=== PATIENT | male | born 1990 ===

== ENCOUNTER 2019-10-08 21:52 | Emergency (ER) | payer SELFPAY ==
[2019-10-08] MEDS ORDERED: Ketorolac 30 MG/ML SDV IM ONE (22:17)
[2019-10-08] MEDS ORDERED: Metoclopramide 10 MG/2 ML SDV IM ONE (22:17)
[2019-10-08] MEDS ORDERED: Cyclobenzaprine 10 MG Tab PO ONE (22:17)
--- NOTE | 2019-10-08 22:20 | EDM.PDOC ---
ED HPI GENERAL MEDICAL PROBLEM - General Chief Complaint: Headache Stated Complaint: HEADACHE Time Seen by Provider: 10/08/19 22:09 - History of Present Illness INITIAL COMMENTS - FREE TEXT/NARRATIVE: The patient complains of a headache. The headache started 3 days ago. It was insidious onset after he was awakened at work. 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 Headache had insidious onset and gradual worsening. It starts in his right forehead and radiates to his right neck muscles. It is 10 out of 10 severity now. It is associated with some nausea. There was no prodrome. There is no visual disturbance. There is no ataxia or other neurologic complaints. The patient has had headaches in the past but not bad enough that he needed to be seen by medical person. The patient has a family history of a father who had a brain aneurysm. History of present illness: [] Review of systems: As per history of present illness and below otherwise all systems reviewed and negative. Past medical history: As per history of present illness and as reviewed below otherwise noncontributory. Surgical history: As per history of present illness and as reviewed below otherwise noncontributory. Social history: No reported history of drug or alcohol abuse. Family history: As per history of present illness and as reviewed below otherwise noncontributory. Physical exam: HEENT: Atraumatic, normocephalic, pupils reactive, negative for conjunctival pallor or scleral icterus, mucous membranes moist, throat clear, neck supple, nontender, trachea midline. Funduscopic exam was difficult but no gross abnormality was seen. Neck was supple Lungs: Clear to auscultation, breath sounds equal bilaterally, chest nontender. Heart: S1S2, regular, negative for clicks, rubs, or JVD. Abdomen: Soft, nondistended, nontender. Negative for masses or hepatosplenomegaly. Negative for costovertebral tenderness. Pelvis: Stable nontender. Genitourinary: Deferred. Rectal: Deferred. Extremities: Atraumatic, negative for cords or calf pain. Neurovascular unremarkable. Neuro: Awake, alert, oriented. Cranial nerves II through XII unremarkable. Cerebellum unremarkable. Motor and sensory unremarkable throughout. Exam nonfocal. Diagnostics: [] Therapeutics: [] Impression: [] Plan: [] Definitive disposition and diagnosis as appropriate pending reevaluation and review of above. Headache Pain Score (Numeric/FACES): 10 - Related Data Allergies Allergy/AdvReac Type Severity Reaction Status Date / Time No Known Allergies Allergy Verified 10/08/19 22:03 Home Meds: Home Meds Cyclobenzaprine [Flexeril] 10 mg PO TID PRN #14 tab 10/08/19 [Rx] Past Medical History - Past Health History Medical/Surgical History: Denies Medical/Surgical History HEENT History: Reports: None Cardiovascular History: Reports: None Respiratory History: Reports: Asthma Gastrointestinal History: Reports: None Genitourinary History: Reports: None Musculoskeletal History: Reports: None Neurological History: Reports: None Psychiatric History: Reports: None Endocrine/Metabolic History: Reports: None Hematologic History: Reports: None Immunologic History: Reports: None Oncologic (Cancer) History: Reports: None Dermatologic History: Reports: None - Infectious Disease History Infectious Disease History: Reports: None - Past Surgical History Head Surgeries/Procedures: Reports: None Male Surgical History: Reports: None Social & Family History - Tobacco Use Smoking Status *Q: Current Every Day Smoker Years of Tobacco use: 7 Packs/Tins Daily: 0.5 - Caffeine Use Caffeine Use: Reports: None - Recreational Drug Use Recreational Drug Use: No ED ROS GENERAL - Review of Systems Review Of Systems: See Below - Physical Exam Exam: See Below Course - Vital Signs Last Recorded V/S: Last Vital Signs Temp 96.1 F L 10/08/19 21:59 Pulse 67 10/08/19 21:59 Resp 18 10/08/19 21:59 BP 124/71 10/08/19 21:59 Pulse Ox 98 10/08/19 21:59 - Orders/Labs/Meds Meds: Medications Discontinued Medications Generic Name Dose Route Start Last Admin Trade Name Freq PRN Reason Stop Dose Admin Cyclobenzaprine HCl 10 mg 10/08/19 22:17 10/08/19 22:30 Flexeril PO 10/08/19 22:18 10 mg ONETIME ONE Administration Ketorolac Tromethamine 30 mg 10/08/19 22:17 10/08/19 22:32 Toradol IM 10/08/19 22:18 30 mg ONETIME ONE Administration Ketorolac Tromethamine Confirm 10/08/19 22:29 10/08/19 22:36 Toradol Administered 10/08/19 22:30 Not Given Dose 30 mg .ROUTE .STK-MED ONE Metoclopramide HCl 10 mg 10/08/19 22:17 10/08/19 22:32 Reglan IM 10/08/19 22:18 10 mg ONETIME ONE Administration - Re-Assessments/Exams Free Text/Narrative Re-Assessment/Exam: 10/08/19 23:04 Patient improved quite a bit with the medications and rest time. Discharged in satisfactory condition Departure - Departure Time of Disposition: 23:00 Disposition: Home, Self-Care 01 Condition: Good Clinical Impression: Tension-type headache - Discharge Information Instructions: Tension Headache, Adult, [id number] Referrals: PCP,None [Primary Care Provider] - Forms: ED Department Discharge Additional Instructions: [facility] [address] [place] [id number] [address] [address] The following information is given to patients seen in the emergency department who are being discharged to home. This information is to outline your options for follow-up care. We provide all patients seen in our emergency department with a follow-up referral. The need for follow-up, as well as the timing and circumstances, are variable depending upon the specifics of your emergency department visit. If you don't have a primary care physician on staff, we will provide you with a referral. We always advise you to contact your personal physician following an emergency department visit to inform them of the circumstance of the visit and for follow-up with them and/or the need for any referrals to a consulting specialist. The emergency department will also refer you to a specialist when appropriate. This referral assures that you have the opportunity for follow-up care with a specialist. All of these measure are taken in an effort to provide you with optimal care, which includes your follow-up. Under all circumstances we always encourage you to contact your private physician who remains a resource for coordinating your care. When calling for follow-up care, please make the office aware that this follow-up is from your recent emergency room visit. If for any reason you are refused follow-up, please contact the [facility] Emergency Department at and asked to speak to the emergency department charge nurse. Use ibuprofen or naproxen for pain. Put heat to the muscles in the back of the neck. Try not to use caffeine or eat just before bed and try to get some good rest. You can take tomorrow off. Follow-up with your primary doctor. Sepsis Event Note - Evaluation Sepsis Screening Result: No Definite Risk - Focused Exam Vital Signs: Vital Signs Temp Pulse Resp BP Pulse Ox 10/08/19 21:59 96.1 F L 67 18 124/71 98 Date Exam was Performed: 10/08/19 Time Exam was Performed: 23:00
[2019-10-08] MEDS ORDERED: Ketorolac 30 MG/ML SDV ONE (22:29)
== END 2019-10-08 23:12 | disposition home or self-care (01) ==
LOC: MW.ED 21:52
DX: G44.209 Tension-type headache, unspecified, not intractable (principal); F17.210 Nicotine dependence, cigarettes, uncomplicated
CPT/HCPCS: 96372; 99283; A9270; J1885; J2765; 99282